=== PATIENT | male | born 1985 | race Caucasian/White ===

== ENCOUNTER 2021-11-12 08:28 | Inpatient (IN) | payer SELFPAY ==
--- NOTE | 2021-11-12 08:32 | ED.C_ITS ---
HPI - Psych General: Chief Complaint: Psychiatric Symptoms Stated Complaint: PSYCH EVAL Time Seen by Provider: 11/12/21 08:29 Source: patient, EMS and police Mode of arrival: EMS Limitations: no limitations History of Present Illness: 36-year-old male who is here with EMS and police for hallucinations. He does admit to methamphetamine use he is extremely paranoid he thinks people are out to get him placed states that they try to get him a ride to see more he thought the [employer] charter driver was a fake Uber and was going to abduct him. He does also tell me these are multiple people out to get him is extremely paranoid. He denies any suicidal homicidal ideations. Associated symptoms: Reports auditory hallucinations Review of Systems Const: Denies: fever(s), chills, body aches or change in appetite Eyes: Denies: blurry vision or eye discomfort ENMT: Denies: throat pain or dental pain Card: Denies: chest pain Resp: Denies: dyspnea GI: Denies: abdominal pain, nausea, vomiting or diarrhea : Denies: dysuria Musc: Denies: neck pain or back pain Skin/Breast: Denies: rash Neuro: Denies: headache(s) Psych: Reports: paranoia and auditory hallucinations Chandrakant/Lymph: Denies: easy bruising All/Imm: Denies: urticaria PFSH ED PFSH: Medical History (Updated 11/12/21 @ 11:01 by Ilana Loco MD) No pertinent past medical history Social History (Updated 11/12/21 @ 08:33 by Ilana Loco MD) Substance/Drug Use: current Physical Exam Const: COMMON NORMALS: patient oriented x3 and healthy appearing HENMT: COMMON NORMALS: normocephalic and atraumatic HEAD & SCALP: normoc ephalic and atraumatic Eye: COMMON NORMALS: Equal, round and reactive pupils present and EOMs intact bilaterally PUPIL: Yes Equal, round and reactive pupils present Neck/C-Spine: COMMON NORMALS: full ROM and supple Chest: COMMONS NORMALS: normal inspection of the chest and normal palpation of entire chest wall Resp: COMMON NORMALS: normal respiratory effort, No retractions, No use of accessory muscles and clear to auscultation bilaterally AUSCULTATION: clear to auscultation bilaterally Cardio: COMMON NORMALS: regular rate, regular rhythm and No murmurs present (Cardio) RATE: regular rate RHYTHM: regular rhythm GI: COMMON NORMALS: Normal to inspection, nondistended, normoactive bowel sounds present, Soft to palpation, non-tender and no masses PALPATION: Yes Soft to palpation Extremity: COMMON NORMALS: normal to inspection and full ROM Neuro: COMMON NORMALS: patient oriented x3, moves all extremities and no focal motor deficits Psych: COMMON NORMALS: cooperative APPEARANCE: Yes disheveled ATTITUDE: Yes paranoid and Yes bizarre THOUGHT CONTENT: Yes Hallucination(s) present Skin: COMMON NORMALS: no rashes or lesions noted and no wounds GENERAL SKIN EXAM: no rashes or lesions noted MDM - Psych Medical Decision Making Patient presents here with paranoia along with acute psychosis likely methamphetamine induced. Patient is stable for admission I spoke to psychiatrist who will admit. Lab Data : 11/12/21 09:24 11/12/21 09:24 Laboratory Results WBC 11.8 10^3/uL (4.0-10.0) H 11/12/21 09:24 RBC 5.48 10^6/uL (4.1-5.3) H 11/12/21 09:24 Hgb 17.0 g/dL (11.7-16.6) H 11/12/21 09:24 Hct 50.7 % (42.0-52.0) 11/12/21 09:24 MCV 92.5 fl (80-94) 11/12/21 09:24 MCH 31.0 pg (28.0-34.0) 11/12/21 09:24 MCHC 33.5 g/dL (30.0-36.0) 11/12/21 09:24 RDW 12.4 % (12.1-15.1) 11/12/21 09:24 Plt Count 221 10^3/cmm (130-400) 11/12/21 09:24 MPV 11.6 fL (7.4-10.4) H 11/12/21 09:24 Neut % (Auto) 75.1 % 11/12/21 09:24 Lymph % (Auto) 17.1 % 11/12/21 09:24 [place] % (Auto) 6.8 % 11/12/21 09:24 Eos % (Auto) 0.4 % 11/12/21 09:24 Baso % (Auto) 0.3 % 11/12/21 09:24 Neut # (Auto) 8.84 10^3/uL (1.8-7.7) H 11/12/21 09:24 Lymph # (Auto) 2.0 10^3/uL (0.8-4.8) 11/12/21 09:24 [place] # (Auto) 0.8 10^3/uL (0.2-0.9) 11/12/21 09:24 Eos # (Auto) 0.1 10^3/uL (0.0-0.8) 11/12/21 09:24 Baso # (Auto) 0.0 10^3/uL (0.0-0.1) 11/12/21 09:24 Nucleated RBC % (auto) 0 % 11/12/21 09:24 Nucleated RBCs # 0.0 /100WBC 11/12/21 09:24 Sodium 140 mmol/L (136-145) 11/12/21 09:24 Potassium 3.3 mmol/L (3.5-5.1) L 11/12/21 09:24 Chloride 100 mmol/L (98-107) 11/12/21 09:24 Carbon Dioxide 24 mmol/L (22-29) 11/12/21 09:24 Anion Gap 19.3 (5-19) H 11/12/21 09:24 BUN 10 mg/dL (6-20) 11/12/21 09:24 Creatinine 1.0 mg/dL (0.7-1.2) 11/12/21 09:24 GFR Calculation 84.5 mL/min (90-130) L 11/12/21 09:24 Glucose 117 mg/dL (65-115) H 11/12/21 09:24 Calculated Osmolality 290 mOsm/kg (285-295) 11/12/21 09:24 Calcium 9.7 mg/dL (8.5-10.5) 11/12/21 09:24 Total Bilirubin 1.8 mg/dL (0.15-1.2) H 11/12/21 09:24 AST 29 U/L (0-40) 11/12/21 09:24 ALT 21 U/L (0-41) 11/12/21 09:24 Alkaline Phosphatase 71 IU/L (40-130) 11/12/21 09:24 Total Protein 8.3 g/dL (6.6-8.7) 11/12/21 09:24 Albumin 5.2 g/dL (3.5-5.2) 11/12/21 09:24 Globulin 3.1 g/dL (1.3-4.6) 11/12/21 09:24 Salicylates < 0.3 mg/dL (3-10) L 11/12/21 09:24 Acetaminophen < 5.0 ug/mL (10-30) L 11/12/21 09:24 Ethyl Alcohol < 10 mg/dL (0-10) 11/12/21 09:24 Discharge Plan Discharge Patient Disposition: Admitted As Inpatient Clinical Impression: Acute psychosis, Drug-induced psychotic disorder Prescriptions: No Action multivitamin Tablet 1 tab PO DAILY MCT Oil 14 gram-120 kcal/15 mL Oil 15 ml PO QAM Cbd Oil 1500mg 0.25 ml PO Q4H Kratom Capsules 2 cap PO Q4H Coding Level of Care Code ED Encoding Machine Operator for Chg Fwd Exam Comprehensive
--- NOTE | 2021-11-12 09:28 | PC.NURSE ---
PT WAS UNCOOPERATIVE BUT BEGAN TO COOPERATE. DR. BERNABE INSTRUCTED STAFF TO ALLOW PT TO KEEP HIS PHONE UNTIL HE IS TRANSFERRED TO NPU. STAFF REMOVED ALL OTHER PT BELONGINGS. PT IS CURRENTLY SITTING ON HIS BED IN HIS ROOM. MEDICATIONS WASTED IN PIXUS
[2021-11-12 09:49] LABS: Basophils % 0.3 %; Eosinophils # 0.1 10^3/uL (0.0-0.8); Eosinophils % 0.4 %; Hematocrit 50.7 % (42.0-52.0); Lymphocytes % 17.1 %; Mean Corpuscular HGB Conc 33.5 g/dL (30.0-36.0); Mean Corpuscular Volume 92.5 fl (80-94); Mean Platelet Volume 11.6 fL (7.4-10.4); Monocytes # 0.8 10^3/uL (0.2-0.9); Monocytes % 6.8 %; Neutrophils # 8.84 10^3/uL (1.8-7.7); Neutrophils % 75.1 %; Nucleated Red Blood Cells % 0 %; Platelet Count 221 10^3/cmm (130-400); Red Blood Count 5.48 10^6/uL (4.1-5.3); Red Cell Distribution Width 12.4 % (12.1-15.1); White Blood Count 11.8 10^3/uL (4.0-10.0)
[2021-11-12 10:34] LABS: Alanine Aminotransferase 21 U/L (0-41); Albumin Level 5.2 g/dL (3.5-5.2); Alkaline Phosphatase 71 IU/L (40-130); Aspartate Amino Transferase 29 U/L (0-40); Blood Urea Nitrogen 10 mg/dL (6-20); Calcium 9.7 mg/dL (8.5-10.5); Carbon Dioxide 24 mmol/L (22-29); Globulin 3.1 g/dL (1.3-4.6); Glomerular Filtration Rate 84.5 mL/min (90-130); Glucose 117 mg/dL (65-115); Total Bilirubin 1.8 mg/dL (0.15-1.2); Total Protein 8.3 g/dL (6.6-8.7)
[2021-11-12 10:36] LABS: Acetaminophen < 5.0 ug/mL (10-30); Alcohol Level < 10 mg/dL (0-10); Salicylate < 0.3 mg/dL (3-10)
[2021-11-12 10:43] LABS: Anion Gap 19.3 (5-19); Chloride 100 mmol/L (98-107); Osmolality Calculated 290 mOsm/kg (285-295); Potassium 3.3 mmol/L (3.5-5.1); Sodium 140 mmol/L (136-145)
[2021-11-12 11:55] LABS: Amphetamines Screen Urine Positive (Negative); Barbiturates Screen Urine Negative (Negative); Benzodiazepines Screen Urine Negative (Negative); Cocaine Screen Urine Negative (Negative); Opiate Screen Urine Negative (Negative); PCP Screen Urine Negative (Negative); THC Screen Urine Positive (Negative)
[2021-11-12] MEDS: tetanus-dipt-pertussis 0.5 mL SDV IM (13:20)
--- NOTE | 2021-11-12 14:40 | PC.NURSE ---
PT STATES WHILE STAYING AT THE [facility] HIS TOILET FLOODED THE FLOOR OF HIS BATHROOM. PT STATES THERE WERE SHAW BOLTS IN THE FLOOR AND SUSPECTS HE HAS TETANUS FROM STANDING IN THE WATER. PT ALSO STATES THAT THERE ARE BIKERS AND HIT MEN AFTER HIM. PT STATES HE DOES NOT TRUST ANYONE
[2021-11-12 15:12] VITALS: BP 161/96; PULSE 127; RESP 18; TEMP 37; O2SAT 99
[2021-11-12] MEDS: OLANZapine 5 mg ODT PO (16:07)
--- NOTE | 2021-11-12 16:19 | PC.ADMIT ---
Addendum entered by Pema Montes RN 11/12/21 16:29: PT DENIES PAIN. DENIES SI/HI AND AVH AT THIS TIME. Original Note: [address] [facility] Admission Note: The patient,Gopi Christine,36 y/o, was given written information regarding hospital policies, unit procedures and contact persons. Patient's smoking status: . Vital Signs - 8 hr 11/12/21 15:13 11/12/21 15:12 Temperature 98.6 F Pulse Rate 127 H Respiratory Rate 18 Blood Pressure 161/96 Pulse Oximetry 99 Oxygen Delivery Method Room Air ADMITTED FROM ER VIA WHEELCHAIR AND SECURITY AT 1525. PT IS ON A 96 HOUR HOLD THAT ENDS 11/18/21 AT 1525. ALLERGY TO CLINDAMYCIN. PT IS VERY PARANOID AND BELIEVES THERE IS A HIT ON HIM. PT WAS POSITIVE FOR METH AND THC. PT STATES HE WAS CLEAN OFF OF METH FOR 90 DAYS THEN USED A DAY AGO. PT MAKES STATEMENTS THAT I CAN HAVE SEX WITH WOMEN AND FIX THEM. SKIN ASSESSMENT COMPLETED AND UNREMARKABLE. PT STATES HE MICRODOSES ON CRATOM, MUSHROOMS, LSD, CANNABIS OIL AND SMOKES WEED DAILY. PT CONTINUES TO BE PARANOID AND ATTEMPTS TO PUT LINENS IN THE WINDOW SO HE DOES NOT GET SHOT. ORIENTATED TO UNIT. ALL QUESTIONS ANSWERED AND SUPPORT VOICED.
[2021-11-12 16:34] VITALS: BMI 28.5
--- NOTE | 2021-11-12 16:39 | PC.NURSE ---
PRN MEDICATION PT IS VERY ANXIOUS, PARANOID. ZYDIS 5MG GIVEN ORDERED.
--- NOTE | 2021-11-12 17:27 | PC.NURSE ---
Disposed of some weed particles in a glass pipe half burnt, placed in the sharps container on NPU.
[2021-11-12 20:41] VITALS: BP 155/82; PULSE 86; RESP 15; TEMP 36.4; O2SAT 98
[2021-11-13 06:00] VITALS: BP 125/81; PULSE 80; RESP 17; TEMP 36.6; O2SAT 96
--- NOTE | 2021-11-13 07:49 | P.NPUHP_ITS ---
Providers/Chief Complaint Admitting Physician: Joey Alvarado MD Chief Complaint: PSYCH EVAL HPI NPU History of Present Illness Gopi Christine is a 36 year old male who presented to the emergency department with allegorical Chief Complaint: Psychiatric Symptoms Stated Complaint: PSYCH EVAL Time Seen by Provider: 11/12/21 08:29 Source: patient, EMS and police Mode of arrival: EMS Limitations: no limitations History of Present Illness: 36-year-old male who is here with EMS and police for hallucinations. He does admit to methamphetamine use he is extremely paranoid he thinks people are out to get him placed states that they try to get him a ride to see more he thought the [employer] industrial tractor driver was a fake Uber and was going to abduct him. He does also tell me these are multiple people out to get him is extremely paranoid. He denies any suicidal homicidal ideations. Associated symptoms: Reports auditory hallucinations. He was admitted to the neuropsychiatric unit for definitive treatment of those issues. He presents today reporting that he has never been psychiatrically hospitalized, has never had outpatient services but did at one point get on Celexa and Vistaril in [place] around the time his father due to anxiety and panic attacks which were prescribed through his primary care physician. He is here secondary to taking some drug and getting out of sort. He reports he does not smoke cigarettes, does not drink alcohol, does smoke marijuana but has his medical marijuana card and denies any other illicit drugs usually and since 27 years but he did have a problem in the past with amphet amines. The last time it was a problem was around the same time that his father had around 24 to 25 years old. He denies ever going to rehab or drug and alcohol treatment and denies any DUIs or drug and alcohol related charges. He reports that when he was 24 to 25 he started having these panic attacks and had a boss that was trying to get him into [employer]. When he went into a conference for it, the room started closing in on him and so for the next 3 years the Celexa and Vistaril were really helping, he had a girlfriend and was working at [employer]. But, he started really struggling with the side effect of decreased libido and inorgasmia, so he got off of the medication and continued to do well. He reports he got mixed up with a young lady who got things really sideways for him and then he finally broke it off with that person and came down here to meet up with a girl that he had a previous history with. She had some addiction problems and when he got down here, she ended up offering him some drugs and he took it and felt stupid for that. He thinks he was having some paranoia but was concerned that it wasn?t paranoia and she was possibly having people come after him and he continues to struggle with whether that was real or not. He denies any history of suicide attempts or completions. He denies any history of self-injurious behaviors. Psychiatric History: As above. Substance Abuse History: As above Family History: He endorses mental health issues on his father?s side of the family. Developmental History: He reports he was a twin who were both born premature with jaundice but got over it and learned to walk and talk and met his developmental milestones on time and denies any need for speech therapy, learning support, emotional support or sp ecial education classes. Psychosocial History: He reports his parents were together when he was born and remained together until his father passed when he was 25 years old. He has a younger sibling who is 30 and he is the oldest by 6 minutes with his twin brother. He reports his childhood was good and denies any emotional, physical or sexual abuse. He reports there was CYS involvement at one point because of his parents and corporal punishments and concerns for them being overzealous with that but afterwards they did tone it down. He graduated from high school and has 1 year of college. He denies any traumatic issues aside from his father?s . He endorses being heterosexual with his longest relationship being a year and a half. He has never been , does not have children, has never been in the and endorses being spiritual but was raised oriental orthodox. His longest employment was 5 years at [employer]. He currently lives in a house by himself. Legal History: He reports he has been to [facility] a couple of times for book and release. Medical History: Denied. Meds NPU Home Medications Medication Instructions Recorded Confirmed Last Taken Type Cbd Oil 1500mg 0.25 ml PO Q4H 11/12/21 11/12/21 Unknown History Kratom Capsules 2 cap PO Q4H 11/12/21 11/12/21 Unknown History medium chain triglycerides 14 15 ml PO QAM 11/12/21 11/12/21 Unknown History gram-120 kcal/15 mL oral oil (MCT Oil) multivitamin 1 tab PO DAILY 11/12/21 11/12/21 Unknown History Allergies Allergy/AdvReac Type Severity Reaction Status Date / Time clindamycin Allergy ALGY-Hives Verified 11/12/21 10:24 PFSH NPU PFSH: Medical History (Updated 11/14/21 @ 07:09 by Joey Alvarado MD) No pertinent past medical history Social History (Updated 11/12/21 @ 08:33 by Ilana Loco MD) Substance/Drug Use: current Mental Status Exam MSE Comments: This is an overweight white male in hospital scrubs with limited grooming and eye contact. No abnormal movements except for mild psychomotor retardation. Cooperative with exam in mild distress. Speech was decreased rate and volume. Mood described as fine to sleep this off, affect subdued. Thought process mostly organized. Thought content: Patient denied suicidal or homicidal ideation, no delusions reported but some bizarre delusions noted, he denies cu rrent auditory visual sedations but had a period to be attending to internal stimuli on observation on the unit. Attention and concentration were limited and memory was mostly reliable but none were formally tested. He is arousable and oriented x3. Insight, judgment and impulse control are impaired. Vitals/I&O/Wt Last Vital Signs Temp 9 F 11/13/21 06:00 Pulse 80 11/13/21 06:00 Resp 17 11/13/21 06:00 BP 109/67 11/13/21 06:00 Pulse Ox 96 11/13/21 06:00 O2 Del Method 11/13/21 06:00 Weight last 48 hrs Weight 92.986 kg Data NPU : 11/12/21 09:24 11/12/21 09:24 A&P Assessment and plan (1) Acute psychosis: Status: Acute (2) Drug-induced psychotic disorder: Status: Acute (3) Methamphetamine use disorder, severe: Status: Acute (4) Cannabis use disorder: Status: Acute Plan This is a 36-year-old white male who presented to the emergency department with bizarre behavior with active addiction with a UDS that was positive for amphetamines and cannabis reporting that he does not know that he needs to be here and certainly does not need a 96-hour hold. 1. Continue current medication. 2. Continue every 15 minute checks for safety. 3. Encourage individual, group and milieu therapies. 4. Encourage sober living treatment after discharge at the highest level of care to which he is willing to commit. 5. Obtain collateral information and evaluate for safety for discharge. Involuntary Hold Information 96 Hour Hold: 96 Hour Involuntary Admission: Yes 96 Hour Hold Ending Date: 11/18/21 96 Hour Hold Ending Time: 15:25 Attestations NPU Medical Necessity Statement*: Inpatient hospitalization is medically necessary and the clinically appropriate intervention at this time. We will monitor medication to make changes as indicated. Patient will be in the hospital for over two midnights. Likely length of stay 3 to 5 days. Coding Level of Care Code Acute Litigation Support Analyst for Jose David Cantor Diagnoses Acute psychosis F23 Drug-induced psychotic disorder F19.959 Methamphetamine use disorder, severe F15.20 Cannabis use disorder F12.90
[2021-11-13 14:00] VITALS: BP 109/67; PULSE 75; RESP 20; TEMP 36.6; O2SAT 96
[2021-11-13] MEDS: OLANZapine 5 mg ODT PO (16:53)
--- NOTE | 2021-11-13 16:54 | PC.NURSE ---
Patient with c/o anxiety/. Reports moderate anxiety. Zydis 5 mg sl given for this.
[2021-11-13 20:00] VITALS: BP 123/74; PULSE 83; RESP 16; O2SAT 93
[2021-11-13] MEDS: hyDROXYzine 25 mg Capsule 50 MG PO (22:04)
[2021-11-13] MEDS: trazodone 50 mg Tablet PO (22:04)
[2021-11-14 06:00] VITALS: BP 121/78; PULSE 74; RESP 16; O2SAT 94
[2021-11-14 13:46] VITALS: BP 124/68; PULSE 80; RESP 18; TEMP 36.6; O2SAT 97
--- NOTE | 2021-11-14 15:03 | W.PM.NPUPNS ---
Subjective NPU Subjective: Patient presents today reporting that he is doing a little better. He continues to struggle with whether the episodes that led to his admission were real or part of a delusional network related to his relapse. We discussed the concerns raised by the police officers and his level of paranoia and agitation. He did not feel the need for any medication and we discussed the possibility of discharge in the next 48 hours. Mental Status Exam MSE Comments: This is an overweight white male in hospital scrubs with improving grooming and eye contact. No abnormal movements. Cooperative with exam in mild distress. Speech was more normal rate and volume. Mood described as better, affect less subdued. Thought process mostly organized. Thought content: Patient denied suicidal or homicidal ideation, no delusions reported but some paranoid versus persecutory delusions noted, he denies current auditory or visual hallucinations. Attention and concentration were improving and memory was mostly reliable but none were formally tested. He is alert and oriented x3. Insight and judgment improving and impulse control also improving. Vitals/I&O/Wt Last Vital Signs Temp 98 F 11/14/21 13:46 Pulse 80 11/14/21 13:46 Resp 18 11/14/21 13:46 BP 124/68 11/14/21 13:46 Pulse Ox 97 11/14/21 13:46 O2 Del Method 11/14/21 13:46 Data NPU : 11/12/21 09:24 11/12/21 09:24 A&P Assessment and plan (1) Acute psychosis: Status: Acute (2) Drug-induced psychotic disorder: Status: Acute (3) Methamphetamine use disorder, severe: Status: Acute (4) Cannabis use disorder: Status: Acute Plan This is a 36-year-old white male who presented to the emergency department with bizarre behavior with active addiction with a UDS that was positive for amphetamines and cannabis reporting that he does not know that he needs to be here and certainly does not need a 96-hour hold. 1. Continue current medication. 2. Continue every 15 minute checks for safety. 3. Encourage individual, group and milieu therapies. 4. Encourage sober living treatment after discharge at the highest level of care to which he is willing to commit. 5. Obtain collateral information and evaluate for safety for discharge. Involuntary Hold Information 96 Hour Hold: 96 Hour Involuntary Admission: Yes 96 Hour Hold Ending Date: 11/18/21 96 Hour Hold Ending Time: 15:25 Attestations NPU Medical Necessity Statement*: Inpatient hospitalization is medically necessary and the clinically appropriate intervention at this time. We will monitor medication to make changes as indicated.Likely length of stay 1-3 days. Coding Level of Care Code Acute Dump Operator for g Fwd Diagnoses Acute psychosis F23 Drug-induced psychotic disorder F19.959 Methamphetamine use disorder, severe F15.20 Cannabis use disorder F12.90
[2021-11-14] MEDS: OLANZapine 5 mg ODT PO (17:13)
--- NOTE | 2021-11-14 17:18 | PC.NURSE ---
Patient with c/o mild anxiety. Patient requesting to go home. Informed patient that he was on a 96 hour hold and the physician would see him tomorrow. Patient has been calm, pleasant and cooperative today. Patient verbalized understanding.
[2021-11-14 19:42] VITALS: BP 117/71; PULSE 70; RESP 16; TEMP 36.9; O2SAT 96
[2021-11-14] MEDS: hyDROXYzine 25 mg Capsule 50 MG PO (21:12)
[2021-11-15 05:56] VITALS: BP 110/64; PULSE 65; RESP 16; TEMP 36.8; O2SAT 94
[2021-11-15 06:00] VITALS: BMI 28.5
--- NOTE | 2021-11-15 11:51 | P.NPUDS_ITS ---
Diagnoses at Discharge Discharge Diagnosis (1) Acute psychosis: Status: Acute (2) Drug-induced psychotic disorder: Status: Acute (3) Methamphetamine use disorder, severe: Status: Acute (4) Cannabis use disorder: Status: Acute Reason for Visit Reason for Visit: PSYCH EVAL Brief History: History of Present Illness Gopi Christine is a 36 year old male who presented to the emergency department with allegorical Chief Complaint: Psychiatric Symptoms Stated Complaint: PSYCH EVAL Time Seen by Provider: 11/12/21 08:29 Source: patient, EMS and police Mode of arrival: EMS Limitations: no limitations History of Present Illness:?? 36-year-old male who is here with EMS and police for hallucinations.? He does admit to methamphetamine use he is extremely paranoid he thinks people are out to get him placed states that they try to get him a ride to see more he thought the [employer] coal tram driver was a fake Uber and was going to abduct him.? He does also tell me these are multiple people out to get him is extremely paranoid.? He denies any suicidal homicidal ideations. Associated symptoms: Reports auditory hallucinations. He was admitted to the neuropsychiatric unit for definitive treatment of those issues. He presents today reporting that he has never been psychiatrically hospitalized, has never had outpatient services but did at one point get on Celexa and Vistaril in [place] around the time his father due to anxiety and panic attacks which were prescribed through his primary care physician. He is here secondary to taking some drug and getting out of sort. He reports he does not smoke cigarettes, does not drink alcohol, does smoke marijuana but has his medical marijuana card and denies any other illicit drugs usually and since 27 years but he did have a problem in the past with amphetamines. The last time it was a problem was around the same time that his father had around 24 to 25 years old. He denies ever going to rehab or drug and alcohol treatment and denies any DUIs or drug and alcohol related charges. He reports that when he was 24 to 25 he started having these panic attacks and had a boss that was trying to get him into [employer]. When he went into a conference for it, the room started closing in on him and so for the next 3 years the Celexa and Vistaril were really helping, he had a girlfriend and was working at [employer]. But, he started really struggling with the side effect of decreased libido and inorgasmia, so he got off of the medication and continued to do well. He reports he got mixed up with a young lady who got things really sideways for him and then he finally broke it off with that person and came down here to meet up with a girl that he had a previous history with. She had some addiction problems and when he got down here, she ended up offering him some drugs and he took it and felt stupid for that. He thinks he was having some paranoia but was concerned that it wasn?t paranoia and she was possibly having people come after him and he continues to struggle with whether that was real or not. He denies any history of suicide attempts or completions. He denies any history of self-injurious behaviors. Psychiatric History: As above. Substance Abuse History: As above Family History: He endorses mental health issues on his father?s side of the family. Developmental History: He reports he was a twin who were both born premature with jaundice but got over it and learned to walk and talk and met his developmental milestones on time and denies any need for speech therapy, learning support, emotional support or special education classes. Psychosocial History: He reports his parents were together when he was born and remained together until his father passed when he was 25 years old. He has a younger sibling who is 30 and he is the oldest by 6 minutes with his twin brother. He reports his childhood was good and denies any emotional, physical or sexual abuse. He reports there was CYS involvement at one point because of his parents and cor poral punishments and concerns for them being overzealous with that but afterwards they did tone it down. He graduated from high school and has 1 year of college. He denies any traumatic issues aside from his father?s . He endorses being heterosexual with his longest relationship being a year and a half. He has never been , does not have children, has never been in the and endorses being spiritual but was raised congregation. His longest employment was 5 years at [employer]. He currently lives in a house by himself. Legal History: He reports he has been to half-way a couple of times for book and release. Medical History: Denied. Hospital Course Hospital Course He slowly acclimated to the individual, group and milieu therapies provided. He showed significant improvement in his psychosis and delusions over the few days he was hospitalized. And he identified that Zyprexa was helping with that and his anxiety related to the delusions. He had significant improvement and was able to contract for safety outside of the hospital prior to discharge. During the hospitalization, patient had routine laboratory studies which were within normal limits except for few outliers. Additionally there was a general medical evaluation which was also within normal limits and revealed no new acute processes. Discharge Summary: At the time of discharge, lethality was denied and psychosis was resolving. Mood and anxiety were well managed. Patient endorsed a plan to avoid all drugs of abuse and follow-up with the aftercare recommendations of the treatment team. Patient was evaluated and deemed to be absent credible lethality, and had achieved the maximum benefit from an inpatient hospitalization, so was discharged. Involuntary Hold Information 96 Hour Hold: 96 Hour Involuntary Admission: Yes 96 Hour Hold Ending Date: 11/18/21 96 Hour Hold Ending Time: 15:25 Mental Status Exam MSE Comments: This is an overweight white male in hospital scrubs with improving grooming and eye contact. No abnormal movements. Cooperative with exam in no acute distress. Speech was more normal rate and volume. Mood described as pretty good, affect congruent. Thought process mostly organized. Thought content: Patient denied suicidal or homicidal ideation, no delusions reported and paranoid versus persecutory delusions resolving, he denies current auditory or visual hallucinations. Attention and concentration were improving and memory was mostly reliable but none were formally tested. He is alert and oriented x3. Insight and judgment improving and impulse control also improving. Discharge Data Studies Completed and Pending: Laboratory Results WBC 11.8 10^3/uL (4.0 -10.0) H 11/12/21 09:24 RBC 5.48 10^6/uL (4.1 -5.3) H 11/12/21 09:24 Hgb 17.0 g/dL (11.7-1 6.6) H 11/12/21 09:24 Hct 50.7 % (42.0-52.0 ) 11/12/21 09:24 MCV 92.5 fl (80-94) 11/12/21 09:24 MCH 31.0 pg (28.0-34. 0) 11/12/21 09:24 MCHC 33.5 g/dL (30.0-3 6.0) 11/12/21 09:24 RDW 12.4 % (12.1-15.1 ) 11/12/21 09:24 Plt Count 221 10^3/cmm (130 -400) 11/12/21 09:24 MPV 11.6 fL (7.4-10.4 ) H 11/12/21 09:24 Neut % (Auto) 75.1 % 11/12/21 09:24 Lymph % (Auto) 17.1 % 11/12/21 09:24 [place] % (Auto) 6.8 % 11/12/21 09:24 Eos % (Auto) 0.4 % 11/12/21 09:24 Baso % (Auto) 0.3 % 11/12/21 09:24 Neut # (Auto) 8.84 10^3/uL (1.8 -7.7) H 11/12/21 09:24 Lymph # (Auto) 2.0 10^3/uL (0.8- 4.8) 11/12/21 09:24 [place] # (Auto) 0.8 10^3/uL (0.2- 0.9) 11/12/21 09:24 Eos # (Auto) 0.1 10^3/uL (0.0- 0.8) 11/12/21 09:24 Baso # (Auto) 0.0 10^3/uL (0.0- 0.1) 11/12/21 09:24 Nucleated RBC % (a uto) 0 % 11/12/21 09:24 Nucleated RBCs # 0.0 /100WBC 11/12/21 09:24 Sodium 140 mmol/L (136-1 45) 11/12/21 09:24 Potassium 3.3 mmol/L (3.5-5 .1) L 11/12/21 09:24 Chloride 100 mmol/L (98-10 7) 11/12/21 09:24 Carbon Dioxide 24 mmol/L (22-29) 11/12/21 09:24 Anion Gap 19.3 (5-19) H 11/12/21 09:24 BUN 10 mg/dL (6-20) 11/12/21 09:24 Creatinine 1.0 mg/dL (0.7-1. 2) 11/12/21 09:24 GFR Calculation 84.5 mL/min (90-1 30) L 11/12/21 09:24 Glucose 117 mg/dL (65-115 ) H 11/12/21 09:24 Calculated Osmolal ity 290 mOsm/kg (285- 295) 11/12/21 09:24 Calcium 9.7 mg/dL (8.5-10 .5) 11/12/21 09:24 Total Bilirubin 1.8 mg/dL (0.15-1 .2) H 11/12/21 09:24 AST 29 U/L (0-40) 11/12/21 09:24 ALT 21 U/L (0-41) 11/12/21 09:24 Alkaline Phosphata se 71 IU/L (40-130) 11/12/21 09:24 Total Protein 8.3 g/dL (6.6-8.7 ) 11/12/21 09:24 Albumin 5.2 g/dL (3.5-5.2 ) 11/12/21 09:24 Globulin 3.1 g/dL (1.3-4.6 ) 11/12/21 09:24 Salicylates < 0.3 mg/dL (3-10 ) L 11/12/21 09:24 Urine Opiates Scre en Negative ng/mL (N egative) 11/12/21 09:35 Acetaminophen < 5.0 ug/mL (10-3 0) L 11/12/21 09:24 Ur Barbiturates Sc reen Negative ng/mL (N egative) 11/12/21 09:35 Ur Phencyclidine S crn Negative ng/mL (N egative) 11/12/21 09:35 Ur Amphetamines Sc reen Positive ng/mL (N egative) H 11/12/21 09:35 U Benzodiazepines Scrn Negative ng/mL (N egative) 11/12/21 09:35 Urine Cocaine Scre en Negative ng/mL (N egative) 11/12/21 09:35 U Marijuana (THC) Screen Positive ng/mL (N egative) H 11/12/21 09:35 Ethyl Alcohol < 10 mg/dL (0-10) 11/12/21 09:24 Vitals: Last Vital Signs Temp 98.2 F 11/15/21 05:56 Pulse 65 11/15/21 05:56 Resp 16 11/15/21 05:56 BP 110/64 11/15/21 05:56 Pulse Ox 94 11/15/21 05:56 O2 Del Method 11/15/21 05:56 Discharge Plan Discharge Patient Disposition: Home Condition: Stable Prescriptions: New Zyprexa 5 mg tablet 5 mg PO DAILY 30 Days Qty: 30 1RF hydroxyzine pamoate 25 mg Capsule 50 mg PO Q6H PRN (Reason: Anxiety) 30 Days Qty: 120 1RF Continued multivitamin Tablet 1 tab PO DAILY MCT Oil 14 gram-120 kcal/15 mL Oil 15 ml PO QAM Cbd Oil 1500mg 0.25 ml PO Q4H Discontinued Kratom Capsules 2 cap PO Q4H Discharge Orders: Discharge Order (Routine); Ordered 11/15/21 Ordered By: Joey Alvarado Discharge Diet: Regular Discharge Activity: Resume usual activity Patient Instructions: Hydroxyzine (By mouth) (Vistaril), Olanzapine (By mouth), Methamphetamine Abuse, Cannabis Use Disorder (DC), Opioid Safety Discharge Attestations NPU Time Spent in Discharge Care*: less than 30 min Specific Discharge Activities: Specific discharge activities: educating patient, discussing with family independence case manager/social workers/dc planners, documenting/other paperwork and evaluating patient/reviewing data Coding Level of Care Code Acute Chg FW DC note Diagnoses Acute psychosis F23 Drug-induced psychotic disorder F19.959 Methamphetamine use disorder, severe F15.20 Cannabis use disorder F12.90
[2021-11-15 12:14] VITALS: BP 110/64; PULSE 65; RESP 16; TEMP 36.8; O2SAT 94
== END 2021-11-15 12:57 | disposition home or self-care (01) | DRG 897 ==
LOC: ER 11:01 → NP 16:06
PROVIDERS: Admitting Provider Psychiatry & Neurology Psychiatry; Emergency Provider Emergency Medicine; Visit Provider Psychiatry & Neurology Psychiatry
DX: F15.251 Other stimulant dependence with stimulant-induced psychotic disorder with hallucinations (principal)
CPT/HCPCS: 80053; 80306; 80307; 85025; 90471; 90715; 96372; 97165; 99285; J1630; J2250